=== PATIENT | male | born 1950 | race Caucasian/White ===

== ENCOUNTER 2022-11-09 16:36 | Emergency (ER) | payer MEDICARE, OTHER, SELFPAY ==
[2022-11-09 16:43] VITALS: BP 168/70; PULSE 85; RESP 16; TEMP 37.1; O2SAT 97
--- NOTE | 2022-11-09 16:50 | ECG_ITS ---
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 Measurements Intervals [place] Rate: 95 P: 79 OR: 168 QRS: 67 QRSD: 87 T: 59 QT: 341 QTc: 430 Interpretive Statements SINUS RHYTHM No previous ECG available for comparison Electronically Signed On 11-10-2022 11:21:02 BULK STATION OPERATOR by Lavell Hair M.D. [id number] f
--- NOTE | 2022-11-09 18:23 | XRR_ITS ---
PROCEDURE INFORMATION: Exam: XR Chest Exam date and time: 11/09/2022 6:39 PM Age: 71 years old Clinical indication: Sternal or substernal pain; Patient HX: Chills and body aches; Additional info: Cp TECHNIQUE: Imaging protocol: Radiologic exam of the chest. Views: 1 view. COMPARISON: No relevant prior studies available. FINDINGS: Lungs: Left upper lobe 6.3 mm pulmonary nodule suggestive of a granuloma, CT could further characterize this. Pleural spaces: Unremarkable. No pleural effusion. No pneumothorax. Heart/Mediastinum: Unremarkable. No cardiomegaly. Bones/joints: Unremarkable. XR/XR chest 1V portable [id number] IMPRESSION: 1. Negative for infiltrate. 2. Left upper lobe 6.3 mm pulmonary nodule suggestive of a granuloma, CT could further characterize this.
--- NOTE | 2022-11-09 19:57 | ED_ITS ---
HPI - Chest Pain General: Chief Complaint: Chest Pain Stated Complaint: chills, bodyaches Time Seen by Provider: 11/09/22 19:56 History of Present Illness: 71-year-old male patient comes in today for complaints of right anterior chest wall discomfort worse with deep breath. Patient reports some chills and discomfort this afternoon. Patient reports that he was ill last week on Friday and Friday but seem to have gotten over it until today. Patient appears nontoxic. Patient denies any routine medical problems. Review of Systems Card: Reports: chest pain Resp: Reports: pain on inspiration Physical Exam Const: COMMON NORMALS: alert HENMT: COMMON NORMALS: normocephalic HEAD & SCALP: normocephalic Neck/C-Spine: COMMON NORMALS: no lymphadenopathy and no meningeal signs Chest: COMMONS NORMALS: normal palpation of entire chest wall Resp: COMMON NORMALS: normal respiratory effort AUSCULTATION: diminished lung sounds Cardio: COMMON NORMALS: regular rate and regular rhythm RATE: regular rate RHYTHM: regular rhythm GI: COMMON NORMALS: Soft to palpation and non-tender PALPATION: Yes Soft to palpation Back/Pelvis: COMMON NORMALS: thoracic and lumbar spine normal to inspection Extremity: COMMON NORMALS: normal to inspection Neuro: SENSORIUM/ORIENTATION: Yes alert MENINGEAL SIGNS: Yes no meningeal signs Skin: COMMON NORMALS: turgor normal GENERAL SKIN EXAM: turgor normal Course Vital Signs: Vital signs: Vital Signs Temperature 98.8 F 11/09/22 16:43 Pulse Rate 85 11/09/22 16:43 Respiratory Rate 16 11/09/22 16:43 Blood Pressure 168/70 11/09/22 16:43 Pulse Oximetry 97 11/09/22 16:43 Oxygen Delivery Me thod 11/09/22 16:43 MDM - Chest Pain Medical Decision Making Patient comes in today for complaints of cough and right upper chest wall pain along with nausea and malaise. Patient reports symptoms started this afternoon. Patient was ill earlier in the week with a flulike syndrome. On exam chest wall is nontender. Lungs are diminished. Skin is warm and dry. Abdomen soft nontender. Vital signs are normal. Differential diagnosis includes but not limited to pneumonia, viral syndrome, ACS. CBC shows a macrocytic anemia, CMP did show some elevation in alkaline phosphatase and liver enzymes, patient reports that this is normal for him and he has had a work-up for his liver abnormality. Chest x-ray was unremarkable. COVID and influenza test were negative. I believe patient might be trying to develop some pneumonia as he does report that is very similar to the symptoms he had before when he had pneumonia. CRP was slightly elevated and white count was elevated at 14,000. Patient will be started on Augmentin 1 tablet twice a day for 7 days. Patient was given 1 dose of dexamethasone. Recommended patient follow-up with primary care for further instruction return to ED for new concerns. Lab Data 11/09/22 20:29 11/09/22 20: Radiology Impressions Chest X-Ray 11/09/22 18:23 IMPRESSION: 1. Negative for infiltrate. 2. Left upper lobe 6.3 mm pulmonary nodule suggestive of a granuloma, CT could further characterize this. Laboratory Results WBC 14.5 10^3/uL (4.0-10.0) H 11/09/22 20: RBC 3.13 10^6/uL (4.1-5.3) L 11/09/22 20: Hgb 10.9 g/dL (11.7-16.6) L 11/09/22 20: Hct 32.5 % (42.0-52.0) L 11/09/22 20: MCV 103.8 fl (80-94) H 11/09/22 20: MCH 34.8 pg (28.0-34.0) H 11/09/22 20: MCHC 33.5 g/dL (30.0-36.0) 11/09/22: RDW 13.2 % (12.1-15.1) 11/09/22 20: Plt Count 92 10^3/cmm (130-400) L 11/09/22 20: MPV 9.7 fL (7.4-10.4) 11/09/22 20: Neut % (Auto) 86.8 % 11/09/22: Lymph % (Auto) 6.7 % 11/09/22 20: Mills % (Auto) 5.6 % 11/09/22 20: Eos % (Auto) 0.1 % 11/09/22: Baso % (Auto) 0.2 % 11/09/22: Neut # (Auto) 12.61 10^3/uL (1.8-7.7) H 11/09/22 20: Lymph # (Auto) 1.0 10^3/uL (0.8-4.8) 11/09/22 20:29 Mills # (Auto) 0.8 10^3/uL (0.2-0.9) 11/09/22 20: Eos # (Auto) 0.0 10^3/uL (0.0-0.8) 11/09/22 20: Baso # (Auto) 0.0 10^3/uL (0.0-0.1) 11/09/22 20: Nucleated RBC % (auto) 0 % 11/09/22 20: Nucleated RBCs # 0.0 /100WBC 11/09/22 20: Sodium 135 mmol/L (136-145) L 11/09/22 20: Potassium 4.5 mmol/L (3.5-5.1) 11/09/22 20: Chloride 100 mmol/L (98-107) 11/09/22 20: Carbon Dioxide 23 mmol/L (22-29) 11/09/22 20: Anion Gap 16.5 (5-19) 11/09/22 20: BUN 19 mg/dL (8-23) 11/09/22 20: Creatinine 1.0 mg/dL (0.7-1.2) 11/09/22 20: GFR Calculation 73.9 mL/min (90-130) L 11/09/22 20: Glucose 97 mg/dL (65-115) 11/09/22 20: Calculated Osmolality 282 mOsm/kg (285-295) L 11/09/22 20: Calcium 8.8 mg/dL (8.5-10.5) 11/09/22 20: Total Bilirubin 2.5 mg/dL (0.15-1.2) H 11/09/22 20:29 AST 70 U/L (0-40) H 11/09/22 20:29 ALT 72 U/L (0-41) H 11/09/22 20:29 Alkaline Phosphatase 996 U/L (40-130) H 11/09/22 20: Troponin T Gen 5 ng/L 9 ng/L (0-15) 11/09/22 20:29 C-Reactive Protein 32.4 mg/L (0.0-4.9) H 11/09/22 20:29 Total Protein 8.1 g/dL (6.6-8.7) 11/09/22 20:29 Albumin 3.6 g/dL (3.5-5.2) 11/09/22 20:29 Globulin 4.5 g/dL (1.3-4.6) 11/09/22 20:29 Influenza Type A Ag negative (Negative) 11/09/22 20:57 Influenza Type B Ag negative (Negative) 11/09/22 20:57 SARS-CoV-2 Ag (Rapid) negative (Negative) 11/09/22 20:57 Discharge Plan Discharge Patient Disposition: Home Clinical Impression: Acute lower respiratory infection Condition: Stable Prescriptions: New amoxicillin-pot clavulanate 875-125 mg tablet 1 tab PO BID Qty: 14 0RF Discharge Orders: Discharge ED (Routine); Ordered 11/09/22 Ordered By: David Segovia Referrals: Yuridia Zapata, HUNTER [Primary Care Provider] - Discharge Diet: Usual diet Discharge Activity: Increase activity as tolerated Patient Instructions: Bacterial Pneumonia (ED) Activity Restrictions/Additional Instructions: Drink plenty of fluids. Healthy diet and activity. Take antibiotic 1 tablet twice a day for the next 7 days. Follow-up with primary care in 2 to 3 days for recheck. Return to ER for worsening symptoms such as increased shortness of breath, inability to hold fluids down, no urine output in 8 to 12 hours, or new concerns. Coding Level of Care Code ED Customer Engagement Specialist for Ligia Ibarra Exam Comprehensive
[2022-11-09 20:34] LABS: Basophils % 0.2 %; Eosinophils % 0.1 %; Hematocrit 32.5 % (42.0-52.0); Hemoglobin 10.9 g/dL (11.7-16.6); Lymphocytes % 6.7 %; Mean Corpuscular HGB Conc 33.5 g/dL (30.0-36.0); Mean Corpuscular Hemoglobin 34.8 pg (28.0-34.0); Mean Corpuscular Volume 103.8 fl (80-94); Mean Platelet Volume 9.7 fL (7.4-10.4); Monocytes # 0.8 10^3/uL (0.2-0.9); Monocytes % 5.6 %; Neutrophils # 12.61 10^3/uL (1.8-7.7); Neutrophils % 86.8 %; Nucleated Red Blood Cells % 0 %; Platelet Count 92 10^3/cmm (130-400); Red Blood Count 3.13 10^6/uL (4.1-5.3); Red Cell Distribution Width 13.2 % (12.1-15.1); White Blood Count 14.5 10^3/uL (4.0-10.0)
[2022-11-09 20:51] LABS: Troponin T (5th) Once 9 ng/L (0-15)
[2022-11-09 20:53] LABS: Alanine Aminotransferase 72 U/L (0-41); Albumin Level 3.6 g/dL (3.5-5.2); Alkaline Phosphatase 996 U/L (40-130); Anion Gap 16.5 (5-19); Aspartate Amino Transferase 70 U/L (0-40); Blood Urea Nitrogen 19 mg/dL (8-23); C Reactive Protein 32.4 mg/L (0.0-4.9); Calcium 8.8 mg/dL (8.5-10.5); Carbon Dioxide 23 mmol/L (22-29); Chloride 100 mmol/L (98-107); Globulin 4.5 g/dL (1.3-4.6); Glomerular Filtration Rate 73.9 mL/min (90-130); Glucose 97 mg/dL (65-115); Osmolality Calculated 282 mOsm/kg (285-295); Potassium 4.5 mmol/L (3.5-5.1); Sodium 135 mmol/L (136-145); Total Bilirubin 2.5 mg/dL (0.15-1.2); Total Protein 8.1 g/dL (6.6-8.7)
[2022-11-09 21:32] LABS: Influenza A by IFA negative (Negative); Influenza B by IFA negative (Negative); SARS Covid-2 Antigen negative (Negative)
[2022-11-09] MEDS: amoxicillin-clav 875-125 mg Tablet 1 TAB PO (21:33)
[2022-11-09] MEDS: dexamethasone 10 mg/mL INJ IVP (21:42)
[2022-11-09 23:25] VITALS: BP 171/85; PULSE 79; O2SAT 99
== END 2022-11-09 23:28 | disposition home or self-care (01) ==
PROVIDERS: Emergency Medicine; Emergency Provider Nurse Practitioner Family; PCP Nurse Practitioner
DX: J22 Unspecified acute lower respiratory infection (principal); Z20.822 Contact with and (suspected) exposure to COVID-19
CPT/HCPCS: 71045; 80053; 84484; 85025; 86140; 87426; 87804; 93005; 96374; 99285; J1100

== ENCOUNTER → 2022-11-19 10:41 | Outpatient (BNVA) | payer MEDICARE, OTHER, SELFPAY | PROVIDERS: PCP Nurse Practitioner; Visit Provider Nurse Practitioner | DX: D64.9 Anemia, unspecified (principal); Z13.6 Encounter for screening for cardiovascular disorders; E55.9 Vitamin D deficiency, unspecified | CPT/HCPCS: 80053; 80061; 82306; 82607; 83550; 84443; 85025 ==

== ENCOUNTER 2022-12-10 09:01 | Outpatient (CLI) | payer MEDICARE, OTHER, SELFPAY ==
[2022-12-10] MEDS: iohexol 350 mg/mL 500 mL Btl (per mL) PO (10:27)
[2022-12-10] MEDS: iohexol 350 mg/mL 500 mL Btl (per mL) IV ×2 (10:28→10:50)
--- NOTE | 2022-12-10 10:41 | CT_ITS ---
WS: [id number] CT CHEST, ABDOMEN AND PELVIS WITH CONTRAST. HISTORY: ANEMIA, SOLITARY PULMONARY NODULE TECHNIQUE: Contiguous 5 mm axial imaging performed through the chest, abdomen and pelvis with IV cont rast, oral contrast has been provided. Coronal and sagittal reformats chest. Coronal and sagittal ref ormats through the abdomen and pelvis. All CT scans at [facility] use at least one of these d ose optimization techniques: automated exposure control; mA and/or kV adjustment per patient size (in cludes targeted exams where dose is matched to clinical indication); or iterative reconstruction. CONTRAST: Omnipaque 350; 95 mL IV. DLP: 298.03 mGy.cm COMPARISON: 09/02/[address]: Mild pulmonary hyperexpansion. 5 mm noncalcified nodule LEFT upper lobe. Benign granuloma L EFT upper lobe. Focal atelectasis RIGHT middle lobe anteriorly. Heart is very mildly enlarged. No per icardial or pleural effusion. Small benign-appearing lymph nodes. Some of these lymph nodes are calci fied. Mild atherosclerosis aorta. Small hiatal hernia. Abdomen CT: Hepatic and splenic granulomata. 16 mm hepatic cyst has very slightly increased in size s [id number]. Normal portal vein. Gallbladder is mildly contracted with wall thickening. Negative pancre as and adrenal glands. No renal obstruction or mass. Mild atherosclerosis aorta. Small lymph nodes near the celiac axis. Very similar to the prior study. Stomach is markedly distended with food products and contrast. No small bowel obstruction. There is m arked diffuse constipation is a change of caliber in the distal colon but no associated mass. There i s very minimal wall thickening involving the junction of the descending colon with the sigmoid. This is also the site of the changing caliber. Normal appendix. Pelvic CT: No free fluid or adenopathy. Urinary bladder is moderately well distended. Prostate is mil dly enlarged encroaches into the urinary bladder. No lytic or sclerotic destructive bone lesions identified. CT/CT chest abdpel w/*[id number] IMPRESSION: 1. 5 mm noncalcified LEFT upper lobe nodule. No pneumonia. Recommend follow-up chest CT in 3 months. 2. Diffuse constipation. Mild colonic wall thickening with change in caliber n ear the distal descending colon and sigmoid. This is very nonspecific and could represent an early colonic neoplasm. Colonoscopy should be considered if that has not been performed recently. 3. Normal appendix. 4. Marked extensive constipation. 5. Atherosclerosis aorta. 6. Hepatic cyst 7. Contracted gallbladder with no adjacent inflammation. Consider chronic chol ecystitis.
== END 2022-12-10 09:02 | disposition home or self-care (01) ==
LOC: RAD 09:04
PROVIDERS: PCP Nurse Practitioner; Visit Provider Nurse Practitioner
DX: R91.1 Solitary pulmonary nodule (principal); D64.9 Anemia, unspecified; K59.00 Constipation, unspecified
CPT/HCPCS: 71260; 74177; Q9967

== ENCOUNTER → 2022-12-26 08:50 | Outpatient (BNVA) | payer MEDICARE, OTHER, SELFPAY | PROVIDERS: PCP Nurse Practitioner; Visit Provider Nurse Practitioner | DX: R91.1 Solitary pulmonary nodule (principal); R93.3 Abnormal findings on diagnostic imaging of other parts of digestive tract | CPT/HCPCS: 80053 ==

== ENCOUNTER → 2023-01-10 15:06 | Outpatient (BNVA) | payer MEDICARE, OTHER, SELFPAY | PROVIDERS: PCP Nurse Practitioner; Visit Provider Surgery | DX: R93.3 Abnormal findings on diagnostic imaging of other parts of digestive tract (principal) | CPT/HCPCS: 99203 ==

== ENCOUNTER 2023-01-31 07:17 | Day surgery (SDC) | payer MEDICARE, OTHER, SELFPAY ==
[2023-01-29 10:01] VITALS: BMI 22.9
[2023-01-31 07:40] VITALS: BP 114/73; PULSE 56; RESP 18; TEMP 36.4; O2SAT 96
[2023-01-31] MEDS: sodium chloride 0.9% 1,000 ML 30 ML IV (07:44)
--- NOTE | 2023-01-31 07:58 | ANES.PREANE2 ---
Pre-Anesthetic Assessment Height/Weight: Height 1.73 m Weight 68.492 kg Temp Pulse Resp BP Pulse Ox O2 Del Method 97.5 F L 56 L 18 114/73 96 Room Air 01/31/23 07:40 01/31/23 07:40 01/31/23 07:40 01/31/23 07:40 01/31/23 07:40 01/31/23 07:40 Operation Date: 01/31/23 09:00 Proposed Procedures p Colonoscopy 70918,R93.3(Not Applicable) - Pal Rodriguez DO Familial anesthetic complications: None Was Beta Jose Rafael taken within 24 hours: N/A Was Clonidine taken within 24 hours: N/A Last intake: Intake Last Liquid Date 01/30/23 Last Liquid Time 22:00 Last Solid Date 01/29/23 Last Solid Time 19:00 Social No alcohol and No tobacco Exam alert, oriented x 3, clear to auscultation bilaterally and regular rate & rhythm Airway Mallampati: Class II Dentition: full CV/HEM Anemia Hepatic elevated LFTS Anesthetic Plan ASA status: 2 Anesthesia: MAC Risk of > 500 ml blood loss (7ml/kg in children): No Medications/Allergies Home Medications Medication Instructions Recorded Confirmed Last Taken Type No Known Home Medications 11/19/22 01/29/23 Unknown History Allergies Allergy/AdvReac Type Severity Reaction Status Date / Time No Known Allergies Allergy Verified 01/29/23 09:59 Current Medications Generic Name Dose Route Start Last Admin Trade Name Freq PRN Reason Stop Dose Admin Sodium Chloride 1,000 mls @ 30 mls/hr 01/31/23 07:30 01/31/23 07:44 Sodium Chloride 0.9% IV 02/01/23 07:29 30 mls/hr .Q24H WILIAN Administration PFSH Anesthesia Medical History Anemia Surgical History No history of previous surgery Family History Brother Cancer Father Hypertension Dementia Mother Chronic kidney disease (CKD) Denies family history of Diabetes Lung disease Stroke Social History Smoking and tobacco status: never smoked Second hand smoke exposure: No Smoking risk assessment/counseling performed?: No Alcohol intake: never Desire information about alcohol rehabilitation?: No Counseling given: No Substance/Drug Use: never Desire information about substance/drug rehabilitation?: No Counseling given: No Adopted: No Caregiver/support person: Yes Lives independently: Yes Household members: spouse Housing: House Marital status: Number of children: 2 service: No Current occupational status: employed and retired Pets and animals: Yes (outside) Pets & animals: dog(s) Current gender identity: Male Data Anesthesia Cardiac Studies: No Data to Display
--- NOTE | 2023-01-31 09:26 | W.PM.OPSUD ---
Surgery/Procedure H&P Update DATE OF PROCEDURE: January 31, 2023 DATE H&P PERFORMED: 01/10/23 H&P UPDATE INFORMATION: I have reviewed H&P completed within last 30 days, I have examined patient prior to procedure and No changes to prior documentation PLANNED PROCEDURE: Operation Date: 01/31/23 09:00 Proposed Procedures p Colonoscopy 42239,R93.3(Not Applicable) - Pal Rodriguez, DO
[2023-01-31 09:52] VITALS: BP 98/58; PULSE 51; RESP 16; TEMP 36.1; O2SAT 97
[2023-01-31 10:07] VITALS: BP 91/47; PULSE 49; RESP 18; O2SAT 95
--- NOTE | 2023-01-31 13:04 | ANE.PACU2 ---
Inpatient post-anesthesia follow up: Airway intact: Yes Vital signs: Temperature 97.0 F Pulse Rate 49 Respiratory Rate 18 Blood Pressure 91/47 Pulse Oximetry 95 Oxygen Delivery Me thod Room Air Oxygen Flow Rate Fraction of Inspir ed Oxygen Hydration adequate: Yes Nausea and vomiting: No Pain level: 1 Mental status: Baseline
== END 2023-01-31 10:33 | disposition home or self-care (01) ==
PROVIDERS: PCP Nurse Practitioner; Visit Provider Surgery
PROC: 0DJD8ZZ Inspection of Lower Intestinal Tract, Via Natural or Artificial Opening Endoscopic (ICD-10-PCS; CPT 45378; principal; 2023-01-31 09:00)
DX: R93.3 Abnormal findings on diagnostic imaging of other parts of digestive tract (principal); D64.9 Anemia, unspecified; D12.2 Benign neoplasm of ascending colon; D12.3 Benign neoplasm of transverse colon
CPT/HCPCS: 45385; 88305; J2704; J7030

== ENCOUNTER → 2023-02-25 17:17 | Outpatient (BNVA) | payer MEDICARE, OTHER, SELFPAY | PROVIDERS: PCP Nurse Practitioner; Visit Provider Surgery | DX: D12.6 Benign neoplasm of colon, unspecified (principal) | CPT/HCPCS: 99212 ==

== ENCOUNTER 2023-03-25 15:20 | Outpatient (CLI) | payer MEDICARE, OTHER, SELFPAY ==
--- NOTE | 2023-03-25 15:30 | CT_ITS ---
WS: [id number] CT chest wo con [id number] HISTORY: R91.1 - Solitary pulmonary nodule TECHNIQUE: Axial imaging performed through the thorax. Coronal and sagittal reformats are submitted. All CT scans at [facility] use at least one of these dose optimization techniques: automated exposure control; mA and/or kV adjustment per patient size (includes targeted exams where dose is mat ched to clinical indication); or iterative reconstruction. CONTRAST: None DLP: 209.72 mGy.cm COMPARISON: 12/10/2022 Lungs and central airway: Chronic emphysema. Previously described LEFT upper lobe noncalcified 5 mm n odule is reidentified and unchanged. No additional mass or nodule. No pneumonia. Pleura: Normal. No pleural effusion. Heart and pericardium: Normal size heart with no pericardial effusion. Mediastinum and yessy: Benign calcified hilar lymph nodes. There are no enlarged mediastinal or hilar lymph nodes. Vessels: Mild atherosclerosis aorta with no aneurysm. Normal size pulmonary artery. Chest wall and lower neck: No soft tissue masses. Upper abdomen: Low-attenuation hepatic mass previously identified as a cyst. Minimal change since 201 5. Hepatic and splenic granulomata. Small hiatal hernia. Large amount of food products within the sto mach. Visualized colon in the upper abdomen with constipation. Pancreatic atrophy. Osseous structures: No destructive process. CT/CT chest wo con [id number] IMPRESSION: 1. No interval change 5 mm noncalcified LEFT upper lobe nodule. Recommend joselyn tional noncontrast chest CT in 6-12 months. 2. Chronic emphysema. 3. Prior granulomatous disease. 4. Stable hepatic cyst.
== END 2023-03-25 15:21 | disposition home or self-care (01) ==
PROVIDERS: PCP Nurse Practitioner; Visit Provider Nurse Practitioner
DX: R91.1 Solitary pulmonary nodule (principal); J43.9 Emphysema, unspecified; K76.89 Other specified diseases of liver; Z87.09 Personal history of other diseases of the respiratory system
CPT/HCPCS: 71250

== ENCOUNTER → 2023-08-12 13:43 | Outpatient (BNVA) | payer MEDICARE, OTHER, SELFPAY | PROVIDERS: PCP Nurse Practitioner; Visit Provider Nurse Practitioner Family | DX: J02.9 Acute pharyngitis, unspecified (principal); R50.9 Fever, unspecified | CPT/HCPCS: 87071; 87426; 87880 ==

== ENCOUNTER → 2023-12-23 10:19 | Outpatient (BNVA) | payer MEDICARE, OTHER, SELFPAY | PROVIDERS: PCP Nurse Practitioner; Visit Provider Nurse Practitioner | DX: Z13.6 Encounter for screening for cardiovascular disorders (principal); D64.9 Anemia, unspecified | CPT/HCPCS: 80053; 80061; 85025 ==

== ENCOUNTER 2024-01-07 14:46 | Outpatient (CLI) | payer MEDICARE, OTHER, SELFPAY ==
--- NOTE | 2024-01-07 15:00 | CT_ITS ---
WS: [id number] CT chest wo con [id number] HISTORY: R91.1 - Solitary pulmonary nodule TECHNIQUE: Axial imaging performed through the thorax. Coronal and sagittal reformats are submitted. All CT scans at [facility] use at least one of these dose optimization techniques: automated exposure control; mA and/or kV adjustment per patient size (includes targeted exams where dose is mat ched to clinical indication); or iterative reconstruction. CONTRAST: None DLP: 287.71 mGy.cm COMPARISON: 12/10/2022, 03/25/2023 Lungs and central airway: Hyperinflated lungs with emphysema. Previously described 5 mm nodule in the LEFT upper lobe continues to be unchanged. There are a few micronodules which are unchanged also. Be nign granuloma LEFT upper lobe. Focal area of mild chronic atelectasis or pneumonitis anterior RIGHT middle lobe is unchanged. Pleura: Normal. No pleural effusion. Heart and pericardium: Normal size heart with no pericardial effusion. Mediastinum and yessy: Benign bilateral calcified lymph nodes. No adenopathy identified on this unenha nced exam. Vessels: Normal size aortic and pulmonary artery. No coronary artery calcifications. Chest wall and lower neck: No soft tissue masses. Upper abdomen: Hepatic and splenic granulomata. Small hiatal hernia. Stable hepatic cysts. No adrenal mass. Osseous structures: New T7 compression fracture by 20%. New air within the T6-7 disc space. IMPRESSION: 1. Continued stable 5 mm noncalcified nodule in the LEFT upper lobe. No new or enlarging masses. 2. New T7 anterior compression fracture by 20%. There are mixed sclerotic and lytic changes in the v ertebral body. No additional bone abnormalities are identified. Consider follow-up bone scan imaging. Due to the mixed attenuation within the vertebral body this may be osteoporotic compression fracture versus a neoplastic compression fracture. Bone scan will help identify other bone lesions if present . No history of malignancy was provided.
== END 2024-01-07 14:47 | disposition home or self-care (01) ==
LOC: RAD 14:47
PROVIDERS: PCP Nurse Practitioner; Visit Provider Nurse Practitioner
DX: R91.1 Solitary pulmonary nodule (principal)
CPT/HCPCS: 71250

== ENCOUNTER 2024-01-30 07:45 | Outpatient (CLI) | payer MEDICARE, OTHER, SELFPAY ==
--- NOTE | 2024-01-30 08:00 | NM_ITS ---
WS: [id number] NUCLEAR MEDICINE WHOLE BODY BONE SCAN HISTORY: S22.060A - Wedge compression fracture of T7-T8 vertebra, ... COMPARISON: Prior CT 01/07/2024 TECHNIQUE: The patient was injected with 25.1 mCi of Technetium 99m HDP and serial whole-body scintig carrie have been performed with anterior and posterior images. No significant abnormal activity in the T7 vertebral body. This is the vertebral body that was suspic ious for metastatic versus osteoporotic compression fracture. There is a single area of increased upt mel involving the RIGHT anterior fourth rib. May be from a remote fracture. There is an additional focus of increased uptake in over the LEFT calvarium. Soft tissue uptake is normal. Activity noted within the kidneys. IMPRESSION: 1. No increased uptake noted within the T7 vertebral body. Therefore this was most consistent with a n osteoporotic compression fracture which is remote. 2. Focus of increased activity within the anterior RIGHT fourth rib. Most consistent with a fracture . No abnormality was noted on the CT from 01/07/2024. 3. Focus of activity in the LEFT calvarium. Recommend follow-up head CT evaluation.
== END 2024-01-30 07:46 | disposition home or self-care (01) ==
LOC: RAD 07:46
PROVIDERS: PCP Nurse Practitioner; Visit Provider Nurse Practitioner
DX: S22.060A Wedge compression fracture of T7-T8 vertebra, initial encounter for closed fracture (principal); X58.XXXA Exposure to other specified factors, initial encounter
CPT/HCPCS: 78306; A9561